=== PATIENT | female | born 1995 | race Caucasian/White ===

== ENCOUNTER 2022-02-01 19:05 | Emergency (ER) | payer MEDICAID ==
[~2022-02-01] VITALS: Ht 157.5 cm; Wt 59.0 kg
[2022-02-01 19:28] VITALS: BP_SYST 96
--- NOTE | 2022-02-01 19:35 | NUR ---
PT FROM HOME WITH C/O LOWER BACK AND ABD PAIN START TODAY RATED 7/10. PT REPORTS N/V, AND MIGRAINE THAT RADIATES TO THE LEFT EYES. PT DENIES VAGINAL BLEEDING. PT REPORTS BEING 12 WEEKS WITH FIRST GESTATION. A&O X4, AMBULATORY, AND FOLLOWING COMMANDS.
[2022-02-01] MEDS ORDERED: METOCLOPRAMIDE HCL 10 MG TABLET PO ONE (19:45)
--- NOTE | 2022-02-01 20:05 | NUR ---
URINE COLLECTED AND SENT TO LAB.
[2022-02-01 20:50] LABS: BASOPHILS % (AUTO) 0.2 % (0.0-2.0); EOSINOPHILS # (AUTO) 0.1 K/uL (0.0-0.4); HEMATOCRIT 33.5 % (36-48); HEMOGLOBIN 11.3 g/dL (12.0-16.0); LYMPHOCYTES # (AUTO) 0.4 K/uL (1.0-5.5); LYMPHOCYTES % (AUTO) 7.9 % (20.5-51.5); MEAN CORPUSCULAR HEMOGLOBIN 27 pg (27-31); MEAN CORPUSCULAR HGB CONC 34 % (32-36); MEAN CORPUSCULAR VOLUME 81 fL (79.0-98.0); MONOCYTES # (AUTO) 0.2 K/uL (0.0-1.0); MONOCYTES % (AUTO) 4.4 % (1.7-9.3); NEUTROPHILS # (AUTO) 4.3 K/uL (1.8-7.7); NEUTROPHILS % (AUTO) 86.5 % (40.0-70.0); PLATELET COUNT (AUTO) 280 K/uL (130-430); RED BLOOD CELL COUNT(AUTO) 4.15 MIL/uL (4.2-6.2); RED CELL DISTRIBUTION WIDTH 13.4 % (9.0-15.0)
[2022-02-01 20:51] LABS: CALCIUM 8.9 mg/dL (8.4-11.0); CREATININE 0.51 mg/dL (0.55-1.30); POTASSIUM 4.1 mmol/L (3.5-5.1)
--- NOTE | 2022-02-01 20:58 | NUR ---
Called for patient in waiting room to medicate per MD order. No response.
[2022-02-01 21:20] LABS: ALBUMIN 3.5 g/dL (3.4-4.8); TOTAL BILIRUBIN 0.3 mg/dL (0.0-1.0)
--- NOTE | 2022-02-01 21:31 | NUR ---
made call via phone but patient did not pickup
--- NOTE | 2022-02-01 21:31 | NUR ---
patient called after ultrasound but no answer in lobby or hallway patient left without being seen by physician
[2022-02-01] MEDS ORDERED: ACET-73 PO (21:49)
[2022-02-01] MEDS ORDERED: METO-290 PO (21:49)
[2022-02-01] MEDS ORDERED: ACETAMINOPHEN 500 MG TABLET PO ONE (22:00)
--- NOTE | 2022-02-01 22:02 | NUR ---
Patient to ER chair for evaluation. Report given to ZAIDA Boucher
[2022-02-01 22:05] LABS: BILIRUBIN,URINE NEGATIVE (NEGATIVE); BLOOD, URINE NEGATIVE (NEGATIVE); COLOR,URINE YELLOW (YELLOW); GLUCOSE,URINE NEGATIVE (NEGATIVE); KETONES,URINE NEGATIVE (NEGATIVE); LEUKOCYTE ESTERASE ,URINE 3+ (NEGATIVE); NITRITE, URINE NEGATIVE (NEGATIVE); PROTEIN URINE NEGATIVE (NEGATIVE)
--- NOTE | 2022-02-01 22:06 | NUR ---
Covid MAYITO swab collected and sent to lab.
[2022-02-01] MEDS ORDERED: METOCLOPRAMIDE HCL 10 MG TABLET ONE (22:11)
[2022-02-01 22:20] LABS: CLARITY/URINE HAZY (CLEAR)
--- NOTE | 2022-02-01 23:28 | NUR ---
Patient given written and verbal discharge instructions and verbalizes understanding. ER MD Ayala discussed with patient the results and treatment provided. Patient in stable condition. ID arm band removed. Rx of Acetaminophen and Reglan sent to preffered pharmacy. Patient educated on pain management and to follow up with PMD. Opportunity for questions provided and answered. Medication side effect fact sheet provided.
[2022-02-01 23:30] VITALS: BP_SYST 100
[2022-02-01] MEDS ORDERED: CEPH-548 PO (23:40)
[2022-02-02 00:04] LABS: BACTERIA,URINE MODERATE /HPF (None Seen); RBC,URINE NONE SEEN /HPF (0-3); URINE AMORPHOUS PHOSPHATES 2+ /HPF (None Seen)
[2022-02-02 00:05] LABS: CALCIUM OXALATE CRYSTALS,UR 0-10 /HPF (None Seen); MUCUS,URINE None Seen /LPF (None Seen)
== END 2022-02-01 22:10 | disposition home or self-care (01) ==
LOC: SED 19:05
DX: O44.01 Complete placenta previa NOS or without hemorrhage, first trimester (principal); O98.511 Other viral diseases complicating pregnancy, first trimester; O24.13 Pre-existing type 2 diabetes mellitus, in the puerperium; Z3A.13 13 weeks gestation of pregnancy
CPT/HCPCS: 99284; 76801; 87426; 80053; 81000; 84702; 83690; 85025; 86901; 87086; 36415; J8597